=== PATIENT | male | born 1940 | race Caucasian/White ===

== ENCOUNTER → 2017-11-28 | Outpatient (CLI) | payer OTHER, MEDICARE ==
[~2017-11-28] MED LIST: ACET-2031 PO; ASC500 PO; ASP325 PO; ASPI-1471 PO; ASPI-715 PO; ATOR10TA65 PO; ATOR20TA65 PO; BARIUM SULFATE 176 GM BTL PO ONE; BARIUM SULFATE 340 GM POWD ONE; CALC625T69 PO; CHOL4PAC15 PO; CYA1000 PO; CYAN1TAB68 PO; DIC10 PO; DICY10CA62 PO; DICY20TA70 PO; DOC100 PO; DOCU-416 PO; DOCU50CA8 PO; ESCI10TA8 PO; FIB PO; FOL1 PO; FOLIC; GUAI120L3 PO; HYDR-4309 PO; LINA145C PO; NAPR-1043 PO; OMEP-125 PO; OMEP-153 PO; ONDA4TAB97 PO; OXYC-854 PO; OXYGENHOME INH; PER PO; PSYL3.4P2 PO; RANI-318 PO; ROS10 PO; SIMV-49 PO; TAMS0.4C70 PO; THIA100T3 PO
--- NOTE | 2017-11-28 16:50 | RADIOLOGY IMAGING REPORT ---
FACILITY: [facility] [place] PATIENT NAME: Art Pillai : 1940 MR: [id number] V: [id number] EXAM DATE: ORDERING PHYSICIAN: MILDRED CLARK TECHNOLOGIST: Location: [facility] Patient: Art Pillai : 1940 Visit/Account:[id number] Date of Sevice: 11/28/2017 Exam type: UPPER GI W/SMALL BOWEL SERIES History: Postprandial abdomen bloating abdomen pain and diarrhea Comparison: None. Findings: Double contrast upper GI series was performed with thick and thin barium. There is an impression on the posterior wall of the cervical esophagus by the cricopharyngeus muscle. Small amount of endotrac heal aspiration was observed during the examination. A large amount of gastroesophageal reflux obser sangita although no demonstration of esophageal stricture or hiatal hernia. No abnormality the stomach w as identified. The ligament of Treitz appeared to be in an abnormally low position. There was a [place] of small bowel loops in the left upper abdomen. The mucosal pattern the small bowel appeared un remarkable. There is no evidence of bowel obstruction. The terminal ileum appeared unremarkable. T ransit time to the right-sided colon was 15 minutes. The fluoroscopy dose area product was 1137.06 m icro-Freedman per meter squared IMPRESSION: 1. Large amount of gastroesophageal reflux although no evidence of hiatal hernia or esophageal stric ture.. There was an impression on the posterior wall the cervical esophagus by the cricopharyngeus muscle Small amount of endotracheal aspiration was observed during the examination Ligament of Treitz appeared to be in an abnormally low position. There was a paucity of small bowel loops in the left upper abdomen. This may be a congenital variant. Small bowel mucosal pattern appe ared unremarkable and there is no evidence of bowel distention. Transit time to the right-sided colo n was 15 minutes Report Dictated By: Nanette Duke MD at 11/28/2017 4:38 PM Report E-Signed By: Nanette Duke MD at 11/28/2017 4:46 PM WSN:[email or web address]
== END ==
LOC: RAD 01:25
PROVIDERS: ATTEND Surgery
DX: K21.9 Gastro-esophageal reflux disease without esophagitis (principal)
CPT/HCPCS: 74245

== ENCOUNTER → 2018-01-01 | Outpatient (CLI) | payer OTHER, MEDICARE ==
[~2018-01-01] MED LIST changes: -BARIUM SULFATE 176 GM BTL PO ONE; -BARIUM SULFATE 340 GM POWD ONE; +CHOL378P6 PO
[2018-01-01 09:17] LABS: PLATELET COUNT, AUTOMATED 163 K/uL (150-450)
[2018-01-01 09:34] LABS: LDL CHOLESTEROL 73 mg/dl
== END ==
LOC: LAB 08:45
PROVIDERS: ATTEND Internal Medicine
DX: N40.0 Benign prostatic hyperplasia without lower urinary tract symptoms (principal); R19.7 Diarrhea, unspecified; E78.5 Hyperlipidemia, unspecified
CPT/HCPCS: 36415; 81001; 82040; 82150; 82247; 82310; 82374; 82435; 82465; 82565; 82947; 83690; 83718; 84075; 84132; 84153; 84155; 84295; 84443; 84450; 84460; 84478; 84520; 85025

== ENCOUNTER 2018-04-06 12:59 | Emergency (ER) | payer OTHER, MEDICARE ==
--- NOTE | 2018-04-06 13:17 | ER Report ---
History and Physical Time Seen By : 13:16 HPI/ROS Fall onto left knee [employer]. Unable to ambulate. Pain and swelling in left knee without any other complaints/injuries Remainder of the 14 system rev: Yes Allergies: Coded Allergies: amoxicillin (Verified Allergy, Severe, SEDATION, 04/06/18) clavulanic acid (Verified Allergy, Severe, SEDATION, 04/06/18) Uncoded Allergies: HAYFEVER (Allergy, Mild, UNKNOWN, 03/07/12) Home Meds Active Scripts Ibuprofen (IBUPROFEN) 600 Mg Tablet, 1 TAB PO Q6H for 14 Days, TAB Prov:FELIPE NEW MD 04/06/18 Oxycodone Hcl/Acetaminophen (PERCOCET 5-325 MG TABLET) 1 Each Tablet, 1 EACH PO Q4H Y for PAIN, #12 TAB 0 Refills Prov:FELIPE NEW MD 04/06/18 Cholestyramine (With Sugar) (CHOLESTYRAMINE POWDER) 378 Gm Powder, 4 GM PO TID Y for diarhea, #378 GM 6 Refills Prov:MILDRED CLARK MD 03/05/18 Tamsulosin Hcl (TAMSULOSIN HCL) 0.4 Mg Cap.er.24h, 0.4 MG PO QHS, #90 CAP 3 Refills Prov:JUSTIN DESIR MD 01/01/18 Dicyclomine Hcl (DICYCLOMINE HCL) 20 Mg Tablet, 1 TAB PO TID, #270 TAB 3 Refills Prov:JUSTIN DESIR MD 01/01/18 Omeprazole (OMEPRAZOLE) 20 Mg Capsule., 1 CAP PO QAM, #180 CAP Prov:JUSTIN DESIR MD 12/28/17 Ranitidine Hcl (RANITIDINE HCL) 150 Mg Tablet, 1 TAB PO BID, #60 TAB 6 Refills Prov:MILDRED CLARK MD 11/22/17 Docusate Sodium (COLACE) 100 Mg Capsule, 1 CAP PO BID, #30 CAP 0 Refills TAKE WITH A FULL GLASS OF WATER Prov:MILDRED CLARK MD 09/14/17 Atorvastatin Calcium (ATORVASTATIN CALCIUM) 20 Mg Tablet, 1 TAB PO QDAY, #90 TAB 3 Refills Prov:JUSTIN DESIR MD 06/06/17 Reported Medications Aspirin (ASPIR 81) 81 Mg Tablet.dr, 81 MG PO QDAY, TAB 2/8/17 [Folic] No Conflict Check 01/11/16 Cyanocobalamin/Folic Acid (VITAMIN Z37-UOJQI ACID TABLET) 1 Each Tablet, 1 EACH PO QDAY 08/01/14 Reviewed Nurses Notes: Yes Old Medical Records Reviewed: Yes Hx Smoking: Yes (QUIT 1975) Smoking Status: Former Smoker Hx Substance Use Disorder: No Hx Alcohol Use: Yes Constitutional Physical Exam A/Ox3 in NAD Cv: RRR no m/r/g Lungs: cta b/l Abdomen: soft, ntnd MSK: no spine midline TTP Extremities: Left knee with TTP of the patella and effusion, limited ROM due to swelling Medical Decision Making ED Course/Re-evaluation ED Course Patella fracture, arthrocentesis of the left knee Procedure Left knee arthrocentesis: Patient consent obtained, sterile field applied, anesthetized with 6ml of 2% lidocaine without epi, 30 ml of bloody/serous drainage obtained. Sent to lab for analysis. Pain and mobility improved after procedure. Decision to Disposition Date: Apr 06, 2018 Decision to Disposition Time: 17:02 Depart Departure Latest Vital Signs Impression: Primary Impression: Patella fracture Condition: Improved Disposition: HOME OR SELF-CARE Referrals: JUSTIN DESIR MD (PCP) HECTOR HENSON MD New Scripts Ibuprofen (IBUPROFEN) 600 Mg Tablet 1 TAB PO Q6H for 14 Days, TAB Prov: FELIPE NEW MD 04/06/18 Oxycodone Hcl/Acetaminophen (PERCOCET 5-325 MG TABLET) 1 Each Tablet 1 EACH PO Q4H Y for PAIN, #12 TAB 0 Refills Prov: FELIPE NEW MD 04/06/18 Patient Instructions: Patellar Fracture (ED) Additional Instructions: This patient will be unable to fly on an airplane for at least 8 weeks Problem Qualifiers Primary Impression: Patella fracture Encounter type: initial encounter Fracture type: closed Fracture morphology : longitudinal Fracture alignment: nondisplaced Laterality: left Qualified Codes: S82.025A - Nondisplaced longitudinal fracture of left patella , initial encounter for closed fracture FELIPE NEW MD Apr 06, 2018 13:17
[2018-04-06 13:19] VITALS: BP 142/92
--- NOTE | 2018-04-06 14:10 | RADIOLOGY IMAGING REPORT ---
FACILITY: [facility] PATIENT NAME: Art Pillai : 1940 MR: [id number] V: [id number] EXAM DATE: ORDERING PHYSICIAN: FELIPE NEW TECHNOLOGIST: Location: [facility] [place] Patient: Art Pillai : 1940 Visit/Account:[id number] Date of Sevice: 04/06/2018 KNEE 3 VIEW LEFT History: Left knee pain. Swelling. Comparison study: None. Findings: There is a horizontal fracture involving the inferior third of the patella. There is abou t 2 mm of separation between the fracture fragments. There is an associated joint effusion with prep atellar swelling. There is diffuse joint space narrowing throughout the left knee with findings of chondrocalcinosis. The findings are most prominent in the medial joint space compartment. IMPRESSION: 1. Horizontal fracture involving the inferior third of the patella with 2 mm of separation of the fr acture fragments. 2. There is a small joint effusion and there is prepatellar soft tissue swelling. 3. 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 Report Dictated By: Kun Rueda MD at 04/06/2018 2:05 PM Report E-Signed By: Kun Rueda MD at 04/06/2018 2:07 PM WSN:[email or web address]
[2018-04-06] MEDS ORDERED: IBUPROFEN 600 MG TAB PO ONE (14:20)
[2018-04-06] MEDS ORDERED: oxyCODONE HCL 5 MG CAP PO ONE (14:50)
[2018-04-06] MEDS ORDERED: OXYC-865 PO (17:05)
[2018-04-06] MEDS ORDERED: IBUP600T22 PO (17:05)
== END 2018-04-06 17:31 | disposition home or self-care (01) ==
LOC: ER 13:23
DX: S82.025A Nondisplaced longitudinal fracture of left patella, initial encounter for closed fracture (principal)
CPT/HCPCS: 20610; 73562; 99283; L1830

== ENCOUNTER → 2018-05-09 | Outpatient (CLI) | payer OTHER, MEDICARE ==
[~2018-05-09] MED LIST changes: +IBUP600T22 PO; +NITR0.4T3 SL; +OXYC-865 PO
[2018-05-09 15:58] LABS: PLATELET COUNT, AUTOMATED 135 K/uL (150-450)
== END ==
LOC: RESP 14:25
PROVIDERS: ATTEND Internal Medicine
DX: R07.9 Chest pain, unspecified (principal)
CPT/HCPCS: 36415; 82040; 82247; 82310; 82374; 82435; 82565; 82947; 84075; 84132; 84155; 84295; 84450; 84460; 84484; 84520; 85025

== ENCOUNTER 2018-05-16 08:15 | Outpatient (RCR) | payer MEDICARE, OTHER ==
--- NOTE | 2018-05-03 15:13 | PT INITIAL EVALUATION ---
MEDICAL DIAGNOSIS: L knee inferior pole patella fracture at the lower third, knee arthritis TREATMENT DIAGNOSIS: same, altered gait mechanics DATE OF ONSET: 04/06/18 SUBJECTIVE: Art Pillai presents to physical therapy status post fracture of his L knee inferior pole patella fracture at the lower third along with arthritis after falling on his knee while working. He reports that the patella has healed well and will continue to further heal until it is fully healed. He reports that he was released from the brace yesterday. He reports that the brace kept him into L knee extension to prevent movement of the patella. He reports that his L knee has arthritis and is bone on bone that will need to be replaced in the future. He reports that he had his R hip replaced about 4 years ago. He reports that he would like to see if he can improve the knee flexion along with improving his core and B LE strength along with improving his walking. His precautions include avoid lifting more than 15-20# along with no twisting with or without weights. He reports that he his job requires him to lift 50-100# on a daily basis. He reports that he will be unable to return to work for at least 3 more weeks. Pain location is medial and lateral joint lines, inferior pole patella at the lower third and described as achy. Pain scale is 4 on a ten point pain scale. Pain is worse with bending, going down stairs, walking, twisting at the knee and better with keeping her knee straight , and resting. REHAB PROBLEM LIST: Increased Pain Decreased ROM Decreased Strength Decreased Endurance Decreased Balance Decreased Function Decreased ADL's Decreased Mobility Decreased Gait PREVIOUS MEDICAL HISTORY: See EMR OCCUPATION: Works at [employer] OBJECTIVE: Posture: He demonstrated minimal forward head, minimal B rounded shoulders, increased thoracic kyphosis, and decreased lumbar lordosis. There is no evidence of any shifts. ROM: R knee PROM-AROM: 0-130 degrees. L knee PROM-AROM: 5-0-80 degrees Strength: B hip flexion, abduction, extension, B ankle DF and PF: 4/5 with no pain. Did not test L knee flexion and extension due to recent fracture. R knee extension and flexion: 4/5 with no pain. B hip adduction: 5/5 with no pain. Palpation: TTP: L Medial and lateral joint lines, inferior pole patella at the lower third Special Tests: 5 degrees of L quad lag Mobility: Independent Gait: He demonstrated the following gait mechanics: decreased R step length, decreased velocity, increased lateral trunk movement, decreased L knee flexion during the gait cycle, decreased pelvic mobility, and increased base of support. Balance: Will test in the future ASSESSMENT: Art will benefit from skilled physical therapy addressing the listed impairments to improve function and QOL. Short Term Goals 3 weeks: Pt will demonstrate full PROM-AROM of L knee extension and flexion (0- 125 deg) to improve function and QOL. 6 weeks: Pt will demonstrate improvements with gait mechanics from baseline to prior level of gait mechanics to improve function and OQL. 6 weeks: Pt will demonstrate improvements in B LE strength from baseline to 4+/ 5 or greater to improve function and QOL. Patient's Goals improve range of motion, get back to work, be able to drive with clutch, and be able to go down stairs PLAN: Patient to be seen for Manual Therapy/STM/MET Strengthening/condition Ice/Heat Range of Motion Spinal Stabilization Work Hardening/Cond Stretching Iontophoresis Neuromuscular Re-ed Closed Chain Program Electrical Stim Posture/Body mechanics Gait Trg/Balance Trg Home Exercise Program Therapeutic Activities 2-3x/week for 6 Weeks If you have any questions, comments, or concerns about this report or plan, please contact me at . Thank you, Esequiel Duron, PT, DPT KRISD
[~2018-05-16 08:15] MED LIST changes: -HYDR-4309 PO; +HYDR-653 PO
--- NOTE | 2018-05-29 08:35 | PT PLAN OF CARE ---
Physician: Vaibhav Aldridge MD Patient is being seen: 2x/week Therapist: Esequiel Duron, PT, DPT Medical Diagnosis: L knee inferior pole patella fracture at the lower third, knee arthritis Treatment Diagnosis: same, altered gait mechanics Date of Onset: 04/06/18 Date of Initial Evaluation: 05/02/18 Date patient was last seen: 05/16/18 Number of treatments: 6 Number of cancellations/No shows: 0 INTERVENTIONS: Manual Therapy/STM/MET Strengthening/condition Ice/Heat Range of Motion Spinal Stabilization Work Hardening/Cond Stretching Iontophoresis Neuromuscular Re-ed Closed Chain Program Electrical Stim Posture/Body mechanics Gait Trg/Balance Trg Home Exercise Program Therapeutic Activities GOALS: 3 weeks: Pt will demonstrate full PROM-AROM of L knee extension and flexion (0- 125 deg) to improve function and QOL. MET 6 weeks: Pt will demonstrate improvements with gait mechanics from baseline to prior level of gait mechanics to improve function and OQL. MET 6 weeks: Pt will demonstrate improvements in B LE strength from baseline to 4+/5 or greater to improve function and QOL. Not Met PATIENT'S GOAL: improve range of motion, get back to work, be able to drive with clutch, and be able to go down stairs Status of Patient's Goals: Progressed well Patient Compliance: Good Prognosis: Good Reasons for continuing therapy: This is a discharge note for Art Pillai. On our last session he reported the following: He reports that his muscles were sore following the previous session and states that his medial knee is doing great unless he twists or turns the knee in a certain direction. He reports that he feels like he is ready to go back to work. He denies any pain around the knee cap and is no longer tender to touch. He was able to maintain his L knee flexion and extension (3-0-133 deg), normal accessory mobility of his patellar in all directions, increased tolerance to increased resistance in his core and B LE's, and return to prior level of function with his gait mechanics. However, he probably could have used more strengthening to his core and B LE's; however, he will utilize his home exercise program to do so. Posture: He demonstrated minimal forward head, minimal B rounded shoulders, increased thoracic kyphosis, and decreased lumbar lordosis. There is no evidence of any shifts. ROM: R knee PROM-AROM: 0-130 degrees. L knee PROM-AROM: 3-0-133 deg degrees Strength: B hip flexion, abduction, extension, B ankle DF and PF: 4+/5 with no pain. B knee extension and flexion: 4/5 with no pain. B hip adduction: 5/5 with no pain. Mobility: Independent If you have any questions, please contact me at [phone]. Thank you, Esequiel Duron, PT, DPT KRISD
[2018-06-01] MEDS ORDERED: SCOP1PAT16 TOP (11:00)
[2018-06-11] MEDS ORDERED: FLUT16SP19 NS (15:37)
[2018-06-11] MEDS ORDERED: LEVO750T44 PO (15:46)
[2018-07-10] MEDS ORDERED: FLUT16SP19 NS (16:50)
== END 2018-07-31 ==
LOC: PT 08:15
PROVIDERS: ATTEND Orthopaedic Surgery
DX: S82.002A Unspecified fracture of left patella, initial encounter for closed fracture (principal); M17.12 Unilateral primary osteoarthritis, left knee; Z96.641 Presence of right artificial hip joint; W19.XXXA Unspecified fall, initial encounter; Y92.89 Other specified places as the place of occurrence of the external cause
CPT/HCPCS: 97162

== ENCOUNTER → 2018-07-17 | Outpatient (CLI) | payer OTHER, MEDICARE ==
[~2018-07-17] MED LIST changes: +FLUT16SP19 NS; +LEVO750T44 PO; +SCOP1PAT16 TOP
--- NOTE | 2018-07-17 15:25 | RADIOLOGY IMAGING REPORT ---
FACILITY: [facility] PATIENT NAME: Art Pillai : 1940 MR: [id number] V: [id number] EXAM DATE: ORDERING PHYSICIAN: ANDRIA CRUZ TECHNOLOGIST: Location: [facility] Patient: Art Pillai : 1940 Visit/Account:[id number] Date of Sevice: 07/17/2018 EXERCISE MYOCARDIAL PERFUSION IMAGING Single Isotope SPECT Imaging with Exercise and Gated SPECT Imaging DATE OF EXAMINATION: July 17, 2018 REQUESTING PHYSICIAN: NANCY INDICATION: Syncope PROCEDURE: After informed consent the patient received an intravenous injection of Tc-99m sestamibi followed at the appropriate time interval by rest imaging. The patient then exercised according to the standard Brnenen protocol for 5 minutes achieving 6 METS. Resting heart rate was 63 bpm with a pea k heart rate of 126 bpm which is 87 % of maximal predicted heart rate for age. Blood pressure at re st was 157/83; blood pressure during exercise was 168/76. There was no chest pain during exercise. Exercise was discontinued because of fatigue. Baseline EKG demonstrates sinus rhythm. There were no EKG changes of ischemia at peak exercise. Approximately one minute and 30 seconds prior to the term ination of exercise, the patient received an intravenous injection of Tc-99m sestamibi followed by st ress imaging. DOSE of Tc-99m sestamibi: REST: 10.9 STRESS: 29.4 RAW DATA: Examination of the summed raw data revealed a good quality study. MYOCARDIAL PERFUSION: The tomographic images demonstrate normal myocardial perfusion without evidenc e of myocardial ischemia or infarct GATED IMAGES: The gated images demonstrate normal LV systolic performance and wall motion with LVEF 74%. IMPRESSION: 1. Adequate exercise tolerance without ischemic EKG changes noted. No significant arrhythmias during testing. 2. Normal myocardial perfusion without evidence of myocardial ischemia or infarct 3. Normal LV systolic performance and wall motion with LVEF 74% Report Dictated By: Nic Jones at 07/17/2018 3:19 PM Report E-Signed By: Nic Jones at 07/17/2018 3:22 PM WSN:[email or web address]
== END ==
LOC: NUC 00:36
PROVIDERS: ATTEND Internal Medicine Cardiovascular Disease
DX: I25.119 Atherosclerotic heart disease of native coronary artery with unspecified angina pectoris (principal)
CPT/HCPCS: 78452; 93017; A9500

== ENCOUNTER 2019-01-06 08:15 | Emergency (ER) | payer OTHER, MEDICARE ==
[~2019-01-06 08:15] MED LIST changes: +AZIT-17 PO; +CODE10LI PO; +PRED20TA6 PO; -ROS10 PO; +ROSU10TA PO
[2019-01-06] MEDS ORDERED: NS(*) 0.9% 500 ML BAG 500 ML IV ONE ×3 (08:20→11:30)
--- NOTE | 2019-01-06 08:20 | ER Report ---
History and Physical Time Seen By MD: 08:19 HPI/ROS CHIEF COMPLAINT: Dizziness HISTORY OF PRESENT ILLNESS: Patient is a 78-year-old male who lives [place] of [facility] who comes in today for evaluation of weakness dizziness and also some numbness to the left side of the face also with complaint of crampy abdominal pain. Patient states symptoms started last evening. He states that he's having episodes where he feels like he is going to pass out but doesn't. He also has noticed some left-sided numbness to his face. notes that there might be a left facial droop. Patient currently denies headache, denies chest pain or shortness of breath at this time. He is reporting crampy abdominal pain and is having tenesmus. Patient has a prior history of diverticulitis that required surgery in 2017. He denies any fevers or chills. He reports his last bowel movement was normal and was yesterday. He does state that he has frequent episodes of diarrhea and is on chronic antidiarrhea medication. Patient also has a history of coronary artery disease with catheterization 2017. Vessels at that time showed between 40 and 50% stenosis of the vessels were felt that they needed to have stenting required. He is followed yearly with Dr. Beaver in [place] [facility]. REVIEW OF SYSTEMS: Constitutional: No fever, no chills.Dizziness Eyes: No discharge. ENT: No sore throat. Cardiovascular: No chest pain, no palpitations. Respiratory: No cough, no shortness of breath. Gastrointestinal: abdominal cramping Genitourinary: No hematuria. Musculoskeletal: No back pain. Skin: No rashes. Neurological: No headache. Allergies: Coded Allergies: amoxicillin (Verified Allergy, Severe, SEDATION, 01/06/19) clavulanic acid (Verified Allergy, Severe, SEDATION, 01/06/19) Uncoded Allergies: HAYFEVER (Allergy, Mild, UNKNOWN, 03/07/12) Home Meds Active Scripts Cholestyramine (With Sugar) (CHOLESTYRAMINE POWDER) 378 Gm Powder, 4 GM PO TID PRN for diarhea, #378 GM 6 Refills Prov:MILDRED CLARK MD 12/25/18 Omeprazole (OMEPRAZOLE) 20 Mg Capsule.dr, 1 CAP PO BID for 90 Days, #180 CAP 3 Refills Prov:MILDRED CLARK MD 11/20/18 Ranitidine Hcl (RANITIDINE HCL) 150 Mg Tablet, 1 TAB PO BID, #60 TAB 6 Refills Prov:MILDRED CLARK MD 11/09/18 Tamsulosin Hcl (TAMSULOSIN HCL) 0.4 Mg Cap.er.24h, 0.4 MG PO QHS, #90 CAP 3 Refills Prov:JUSTIN DESIR MD 01/01/18 Dicyclomine Hcl (DICYCLOMINE HCL) 20 Mg Tablet, 1 TAB PO TID, #270 TAB 3 Refills Prov:JUSTIN DESIR MD 01/01/18 Atorvastatin Calcium (ATORVASTATIN CALCIUM) 20 Mg Tablet, 1 TAB PO QDAY, #90 TAB 3 Refills Prov:JUSTIN DESIR MD 06/06/17 Reported Medications Aspirin (ASPIR 81) 81 Mg Tablet.dr, 81 MG PO QDAY, TAB 11/09/16 [Folic] No Conflict Check 01/11/16 Cyanocobalamin/Folic Acid (VITAMIN P40-ZGELC ACID TABLET) 1 Each Tablet, 1 EACH PO QDAY 08/01/14 Discontinued Scripts Nitroglycerin (NITROGLYCERIN) 0.4 Mg Tab.subl, 0.4 MG SL Q5MIN PRN for CHEST PAIN-JANUARY REPEAT X 3, #30 TAB Prov:JUSTIN DESIR MD 01/01/19 Codeine Phosphate/Guaifenesin (Guaifen-Codeine 200-20 mg/10Ml) 20 Mg-200 Mg/10 Ml Liquid, 5 ML PO QID PRN for cough, #200 ML Prov:JUSTIN DESIR MD 12/07/18 Prednisone (PREDNISONE) 20 Mg Tablet, 20 MG PO BID, #10 TAB Prov:JUSTIN DESIR MD 12/07/18 Azithromycin (Z-PACK) 250 Mg Tablet, 1 DOSE-PACK PO DIRECTED, #1 DOSE-PACK 2 TABLETS DAY ONE THEN 1 TABLET EVERY DAY FOR THE NEXT 4 DAYS. Prov:JUSTIN DESIR MD 12/07/18 Fluticasone Prop 50 Mcg Ns (FLONASE 50 MCG NS) 16 Gm [place].susp, 2 SPRAYS NS QDAY for 10 Days, #1 BOT 5 Refills Prov:MARZENA LOZADA DNP, [employer] 07/10/18 Docusate Sodium (COLACE) 100 Mg Capsule, 1 CAP PO BID, #30 CAP 0 Refills TAKE WITH A FULL GLASS OF WATER Prov:MILDRED CLARK MD 09/14/17 Past Medical/Surgical History Past medical history significant for coronary artery disease and cardiac catheterization in 2016. History of diverticulitis, gastroesophageal reflux disease, history of right hip replacement in 2011. History of skin cancer Hx Smoking: Yes (QUIT 1976) Smoking Status: Former Smoker Hx Substance Use Disorder: No Hx Alcohol Use: Yes Constitutional Vital Sign - Last 24 Hours 01/06/19 01/06/19 01/06/19 01/06/19 08:31 08:33 08:42 08:45 Temp 97.9 Pulse 88 86 Resp 13 12 B/P (MAP) 129/79 (96) 129/78 115/78 (90) Pulse Ox 89 90 O2 Delivery Room Air 01/06/19 01/06/19 01/06/19 01/06/19 08:47 08:48 08:51 09:00 Pulse 82 90 75 Resp 14 11 12 B/P (MAP) 127/70 (89) 125/78 (94) 116/62 (80) 148/92 (110) Pulse Ox 91 91 92 01/06/19 01/06/19 01/06/19 01/06/19 09:05 09:30 09:35 09:41 Pulse 78 74 Resp 12 12 B/P (MAP) 113/69 (84) 137/73 (94) Pulse Ox 93 93 01/06/19 01/06/19 01/06/19 01/06/19 09:46 10:00 10:16 10:21 Pulse 75 78 79 Resp 11 14 12 B/P (MAP) 124/70 (88) Pulse Ox 91 90 90 01/06/19 01/06/19 01/06/19 01/06/19 10:30 10:51 11:15 11:21 Pulse 72 68 Resp 9 B/P (MAP) 117/68 (84) 137/74 (95) Pulse Ox 92 01/06/19 01/06/19 01/06/19 01/06/19 11:26 11:30 11:56 12:00 Pulse 67 59 Resp 5 10 B/P (MAP) 119/69 (86) 147/80 (102) Pulse Ox 91 91 Intake and Output 01/06/19 01/06/1919 15:00 23:00 07:00 Intake Total 1000 ml Balance 1000 ml Physical Exam General Appearance: The patient is alert, has no immediate need for airway protection and no signs of toxicity. Eyes: Pupils equal and round no pallor or injection. ENT, Mouth: Mucous membranes are moist. Respiratory: There are no retractions, lungs are clear to auscultation. Cardiovascular: Regular rate and rhythm. Gastrointestinal: Abdomen is soft and non tender, no masses, bowel sounds normal. Neurological: Awake and alert Skin: Warm and dry, no rashes. Musculoskeletal: Neck is supple non tender. Extremities are nontender, nonswollen and have full range of motion. NIH Stroke Scale: 2 Level of consciousness: Alert -0 Answers both questions correctly-0 Performs both tasks correctly-0 Best Gaze: Normal-0 Visual: No visual loss-0 Facial Palsy: Minor paralysis-1 Motor Left Arm: No drift for 10 seconds-0 Motor Right Arm: No drift for 10 seconds-0 Motor Left Leg: No drift for 5 seconds-0 Motor Right Leg: No drift for 5 seconds-0 Limb Ataxia: Absent-0 Sensory: mild to moderate sensory loss-1 Best Language: Normal, no aphasia-0 Dysarthria: Normal-0 Extinction and Inattention: No abnormality-0 Medical Decision Making Data Points Result Diagram: 01/06/19 0838 01/06/19 0838 Laboratory Hematology Test 01/06/19 08:38 01/06/19 12:09 Red Blood Count 4.74 M/uL (4.00-5.60) Mean Corpuscular Volume 97.4 fL (80.0-96.0) Mean Corpuscular Hemoglobin 32.9 pg (26.0-33.0) Mean Corpuscular Hemoglobin Concent 33.7 g/dL (32.0-36.0) Red Cell Distribution Width 15.2 % (11.5-14.5) Mean Platelet Volume 8.4 fL (7.2-11.1) Neutrophils (%) (Auto) 77.3 % (39.4-72.5) Lymphocytes (%) (Auto) 15.3 % (17.6-49.6) Monocytes (%) (Auto) 6.2 % (4.1-12.4) Eosinophils (%) (Auto) 0.8 % (0.4-6.7) Basophils (%) (Auto) 0.4 % (0.3-1.4) Nucleated RBC Relative Count (auto) 0.0 /100WBC Neutrophils # (Auto) 4.0 K/uL (2.0-7.4) Lymphocytes # (Auto) 0.8 K/uL (1.3-3.6) Monocytes # (Auto) 0.3 K/uL (0.3-1.0) Eosinophils # (Auto) 0.0 K/uL (0.0-0.5) Basophils # (Auto) 0.0 K/uL (0.0-0.1) Nucleated RBC Absolute Count (auto) 0.00 K/uL Prothrombin Time 12.1 seconds (12.0-14.4) Prothromb Time International Ratio 0.90 Activated Partial Thromboplast Time 26 seconds (23-35) Sodium Level 137 mmol/L (137-145) Potassium Level 3.9 mmol/L (3.5-5.0) Chloride Level 102 mmol/L (98-107) Carbon Dioxide Level 22 mmol/L (22-30) Blood Urea Nitrogen 17 mg/dl (9-21) Creatinine 0.90 mg/dl (0.66-1.25) Glomerular Filtration Rate Calc > 60.0 Random Glucose 197 mg/dl (75-110) Calcium Level 9.0 mg/dl (8.4-10.2) Total Bilirubin 0.6 mg/dl (0.2-1.3) Aspartate Amino Transf (AST/SGOT) 38 U/L (0-35) Alanine Aminotransferase (ALT/SGPT) 12 U/L (0-56) Alkaline Phosphatase 96 U/L (0-126) Troponin I < 0.012 ng/ml B-Type Natriuretic Peptide 18 pg/ml (0-100) Total Protein 7.5 g/dl (6.3-8.2) Albumin 4.5 g/dl (3.5-5.0) Whole Blood Glucose 115 mg/DL (75-110) Chemistry Test 01/06/19 08:38 01/06/19 12:09 White Blood Count 5.2 k/uL (4.5-11.0) Red Blood Count 4.74 M/uL (4.00-5.60) Hemoglobin 15.6 g/dL (14.0-18.0) Hematocrit 46.2 % (42.0-52.0) Mean Corpuscular Volume 97.4 fL (80.0-96.0) Mean Corpuscular Hemoglobin 32.9 pg (26.0-33.0) Mean Corpuscular Hemoglobin Concent 33.7 g/dL (32.0-36.0) Red Cell Distribution Width 15.2 % (11.5-14.5) Platelet Count 199 K/uL (150-450) Mean Platelet Volume 8.4 fL (7.2-11.1) Neutrophils (%) (Auto) 77.3 % (39.4-72.5) Lymphocytes (%) (Auto) 15.3 % (17.6-49.6) Monocytes (%) (Auto) 6.2 % (4.1-12.4) Eosinophils (%) (Auto) 0.8 % (0.4-6.7) Basophils (%) (Auto) 0.4 % (0.3-1.4) Nucleated RBC Relative Count (auto) 0.0 /100WBC Neutrophils # (Auto) 4.0 K/uL (2.0-7.4) Lymphocytes # (Auto) 0.8 K/uL (1.3-3.6) Monocytes # (Auto) 0.3 K/uL (0.3-1.0) Eosinophils # (Auto) 0.0 K/uL (0.0-0.5) Basophils # (Auto) 0.0 K/uL (0.0-0.1) Nucleated RBC Absolute Count (auto) 0.00 K/uL Prothrombin Time 12.1 seconds (12.0-14.4) Prothromb Time International Ratio 0.90 Activated Partial Thromboplast Time 26 seconds (23-35) Glomerular Filtration Rate Calc > 60.0 Calcium Level 9.0 mg/dl (8.4-10.2) Total Bilirubin 0.6 mg/dl (0.2-1.3) Aspartate Amino Transf (AST/SGOT) 38 U/L (0-35) Alanine Aminotransferase (ALT/SGPT) 12 U/L (0-56) Alkaline Phosphatase 96 U/L (0-126) Troponin I < 0.012 ng/ml B-Type Natriuretic Peptide 18 pg/ml (0-100) Total Protein 7.5 g/dl (6.3-8.2) Albumin 4.5 g/dl (3.5-5.0) Whole Blood Glucose 115 mg/DL (75-110) Coagulation Test 01/06/19 08:38 Prothrombin Time 12.1 seconds Prothromb Time International Ratio 0.90 Activated Partial Thromboplast Time 26 seconds EKG/Imaging EKG Interpretation EKG shows sinus rhythm with a ventricular rate of 85 bpm. 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 This was compared to an EKG from May 2018 and there are essentially no appreciable changes noted. Monitor Interpretation: Normal Sinus Rhythm Imaging FACILITY: [facility] PATIENT NAME: Art Pillai : 1940 MR: [id number] V: [id number] EXAM DATE: ORDERING PHYSICIAN: ULISSES ARSHAD TECHNOLOGIST: Location: [facility] [place] Patient: Art Pillai : 1940 Visit/Account:[id number] Date of Sevice: 01/06/2019 MR BRAIN/BRAIN STEM W/O CON COMPARISON: None. HISTORY: dizziness. TECHNIQUE: Multiplanar MRI brain utilizing T1 weighted and fluid sensitive sequences. CONTRAST: None. FINDINGS: CSF SPACES: Ventricles, cisterns, and sulci are diffusely prominent consistent with volume loss which appears age-appropriate. No hydrocephalus, extra-axial hemorrhage, or mass. No midline shift. CEREBRUM: Patchy foci of abnormal FLAIR signal hyperintensity in the cerebral white matter, commonly secondary to chronic small vessel ischemic disease. No acute infarct by diffusion-weighted imaging. No acute intracranial hemorrhage or cerebral edema. CEREBELLUM: No edema, hemorrhage, mass, acute infarction, or significant atrophy. Tonsils are not low lying. BRAINSTEM: No edema, hemorrhage, mass, acute infarction, or significant atrophy. CALVARIUM: Unremarkable. SINUSES: Limited views demonstrate no significant mucosal thickening or fluid. ORBITS: Limited views are unremarkable. OTHER: The expected intracranial flow voids are present. IMPRESSION: Cerebral white matter signal abnormality compatible with chronic small vessel ischemic disease. No acute intracranial process or specific cause for symptoms. Report Dictated By: Clinton Cisneros at 01/06/2019 11:38 AM Report E-Signed By: Clinton Cisneros at 01/06/2019 11:40 AM WSN:[id number] FACILITY: [facility] PATIENT NAME: Art Pillai : 1940 MR: [id number] V: [id number] EXAM DATE: ORDERING PHYSICIAN: ULISSES ARSHAD TECHNOLOGIST: Location: [facility] [place] Patient: Art Pillai : 1940 Visit/Account:[id number] Date of Sevice: 01/06/2019 CT BRAIN NO CONTRAST COMPARISON: None. HISTORY: dizziness. TECHNIQUE: Noncontrast axial CT brain with coronal and sagittal reformats. One of the following dose optimization techniques was utilized in the performance of this exam: automated exposure control; adjustment of the mA and/or kV according to patient size; or use of iterative reconstruction technique. Specific details can be referenced in the facility's radiology CT exam operational policy. CONTRAST: None. FINDINGS: CSF SPACES: Ventricles, cisterns, and sulci are diffusely prominent consistent with volume loss which appears age-appropriate. No hydrocephalus, extra-axial hemorrhage, or mass. No midline shift. CEREBRUM: Patchy low-density in the cerebral white matter, commonly associated with chronic small vessel ischemic disease. No clear evidence of acute infarct by CT. No acute intracranial hemorrhage or cerebral edema. CEREBELLUM: No edema, hemorrhage, mass, acute infarction, or significant atrophy. BRAINSTEM: No edema, hemorrhage, mass, acute infarction, or significant atrophy. CALVARIUM: No mass or other significant visible lesion. Mastoid air cells are normally pneumatized. SINUSES: Limited views demonstrate no significant mucosal thickening or fluid. Opacification of a single right anterior ethmoid air cell is noted. Small mucous retention cyst along the lateral wall of the right maxillary antrum. ORBITS: Limited views are unremarkable. OTHER: Negative. IMPRESSION: Findings compatible with moderate chronic small vessel ischemic disease. No acute intracranial process or specific cause for symptoms. Report Dictated By: Clinton Cisneros at 01/06/2019 9:39 AM Report E-Signed By: Clinton Cisneros at 01/06/2019 9:42 AMFACILITY: [facility] PATIENT NAME: Art Pillai : 1940 MR: [id number] V: [id number] EXAM DATE: ORDERING PHYSICIAN: ULISSES ARSAHD TECHNOLOGIST: Location: [facility] [place] Patient: Art Pillai : 1940 Visit/Account:[id number] Date of Sevice: 01/06/2019 CT ABDOMEN PELVIS W/O CON History: 78-year-old male with dizziness and abdominal pain.. Technique: CT images were obtained through the abdomen and pelvis without the injection of intravenous contrast. Coronal and sagittal reformations were then created. One of the following dose optimization techniques was utilized in the performance of this exam: Automated exposure control; adjustment of the mA and/or kV according to the patient's size; or use of an iterative reconstruction technique. Specific details can be referenced in the facility's radiology CT exam operational policy. Comparison study:None Findings: Lung bases: Negative Hepatobiliary: No liver mass is seen, but the noncontrast study limits evalu ation of the liver. All are surgically absent and there is no biliary ductal dilatation.. Spleen: Negative. Adrenals: Negative Pancreas: Negative. Kidneys/genitourinary/retroperitoneum: There are no findings of hydronephrosis or nephrolithiasis. There are no findings of retroperitoneal lymphadenopathy. Bowel/peritoneum/mesentery: There are no dilated loops of large or small bowel to suggest ileus or obstruction. There are no findings of diverticulosis or diverticulitis. Normal appendix is not seen in the same position as was on the prior exam. Pelvic/genital urinary: The bladder is unremarkable. Prostate is minimally enlarged. There is a focus of calcification in the prostate gland. Vessels: There is vascular calcification of the aorta and mesenteric vessels but there are no sites to suggest significant stenosis. The aorta measures 2.5 cm in its greatest AP dimension. Lymph node: No findings of a kaelyn mass. Body wall/bones: Status post right hip replacement. No hernia. Peritoneal cavity: No findings of ascites or pneumoperitoneum. IMPRESSION: 1. There are no findings to explain abdominal pain. 2. The gallbladder is not seen and may be surgically absent. 3. Status post right total hip replacement. Report Dictated By: Kun Rueda MD at 01/06/2019 9:36 AM Report E-Signed By: Kun Rueda MD at 01/06/2019 9:42 AM WSN:[id number] ED Course/Re-evaluation Clinical Indication for ER IV: IV Access ED Course 01/06/2019 8:51:35 am patient with potential strokelike symptoms in the sense of dizziness and some left-sided facial weakness. No apparent motor weakness or ataxia was elicited on exam. Patient has no difficulty with speech or memory. Patient also with crampy abdominal pain. History of diverticulitis. Plan at this time will be a stroke workup starting with noncontrast CT of the head. Given the fact that the patient is having episodes of dizziness this could represent posterior circulation. If no contraindications we'll perform a noncontrast brain MRI after CT scan. We'll also perform a noncontrast CT of the abdomen and pelvis to look for evidence of obstruction or inflammation. 01/06/2019 12:10:32 pm patient with unremarkable CT of the brain, CT of the abdomen and pelvis as well as MRI of the brain. Additional chronic small vessel disease but no acute finding to explain the patient's symptoms. She did have an elevated blood sugar during the visit which came down to 1 15 mg/dL after 1 L of IV fluids. The patient's symptoms may be related to undiagnosed type II diabetes referred back to primary care provider for evaluation. Decision to Disposition Date: Jan 06, 2019 Decision to Disposition Time: 12:11 Depart Departure Latest Vital Signs Vital Signs Date Time Temp Pulse Resp B/P (MAP) Pulse Ox O2 Delivery O2 Flow Rate FiO2 01/06/19 12:00 147/80 (102) 01/06/19 11:56 59 10 91 01/06/19 08:33 97.9 Room Air Impression: Primary Impression: Hyperglycemia Condition: Improved Disposition: HOME OR SELF-CARE Referrals: JUSTIN DESIR MD (PCP) 1 Week for recheck of blood sugar Patient Instructions: Hyperglycemia, Non-Diabetic (ED) ULISSES ARSHAD MD Jan 06, 2019 08:20
--- NOTE | 2019-01-06 08:39 | EKG ---
FACILITY: [facility] PATIENT NAME: PRIYA MILLER : [id number] MR: [id number] V: [id number] EXAM DATE: ORDERING PHYSICIAN: ULISSES ARSHAD TECHNOLOGIST: BOOGIE Test Reason : DIZZY Blood Pressure : / mmHG Vent. Rate : 085 BPM Atrial Rate : 085 BPM P-R Int : 190 ms QRS Dur : 100 ms QT Int : 426 ms P-R-T Axes : 069 -72 075 degrees QTc Int : 506 ms Sinus rhythm with premature atrial complexes Left axis deviation Anterior infarct , age undetermined Prolonged QT Abnormal ECG Confirmed by VALERIANO GARAY ([id number]) on 01/06/2019 11:57:29 AM Referred By: JEANCARLOS Confirmed By:VALERIANO GARAY
[2019-01-06 09:00] LABS: PLATELET COUNT, AUTOMATED 199 K/uL (150-450)
[2019-01-06 09:11] LABS: INR 0.9
--- NOTE | 2019-01-06 09:45 | RADIOLOGY IMAGING REPORT ---
[place] [facility] [place] NAME: Art Pillai : 1940 MR: [id number] V: [id number] EXAM DATE: ORDERING PHYSICIAN: ULISSES ARSHAD TECHNOLOGIST: Location: [facility] Patient: Art Pillai : 1940 Visit/Account:[id number] Date of Sevice: 01/06/2019 CT BRAIN NO CONTRAST COMPARISON: None. HISTORY: dizziness. TECHNIQUE: Noncontrast axial CT brain with coronal and sagittal reformats. One of the following dose optimization techniques was utilized in the performance of this exam: auto mated exposure control; adjustment of the mA and/or kV according to patient size; or use of iterative reconstruction technique. Specific details can be referenced in the facility's radiology CT exam op erational policy. CONTRAST: None. FINDINGS: CSF SPACES: Ventricles, cisterns, and sulci are diffusely prominent consistent with volume loss whic h appears age-appropriate. No hydrocephalus, extra-axial hemorrhage, or mass. No midline shift. CEREBRUM: Patchy low-density in the cerebral white matter, commonly associated with chronic small ve ssel ischemic disease. No clear evidence of acute infarct by CT. No acute intracranial hemorrhage or cerebral edema. CEREBELLUM: No edema, hemorrhage, mass, acute infarction, or significant atrophy. BRAINSTEM: No edema, hemorrhage, mass, acute infarction, or significant atrophy. CALVARIUM: No mass or other significant visible lesion. Mastoid air cells are normally pneumatize d. SINUSES: Limited views demonstrate no significant mucosal thickening or fluid. Opacification of a single right anterior ethmoid air cell is noted. Small mucous retention cyst along the lateral wall o f the right maxillary antrum. ORBITS: Limited views are unremarkable. OTHER: Negative. IMPRESSION: Findings compatible with moderate chronic small vessel ischemic disease. No acute intracranial proce ss or specific cause for symptoms. Report Dictated By: Clinton Cisneros at 01/06/2019 9:39 AM Report E-Signed By: Clinton Cisneros at 01/06/2019 9:42 AM WSN:[id number]
--- NOTE | 2019-01-06 09:45 | RADIOLOGY IMAGING REPORT ---
FACILITY: [facility] [place] PATIENT NAME: Art Pillai : 1940 MR: [id number] V: [id number] EXAM DATE: ORDERING PHYSICIAN: ULISSES ARSHAD TECHNOLOGIST: Location: [facility] Patient: Art Pillai : 1940 Visit/Account:[id number] Date of Sevice: 01/06/2019 CT ABDOMEN PELVIS W/O CON History: 78-year-old male with dizziness and abdominal pain.. Technique: CT images were obtained through the abdomen and pelvis without the injection of intravenou s contrast. Coronal and sagittal reformations were then created. One of the following dose optimization techniques was utilized in the performance of this exam: Autom ated exposure control; adjustment of the mA and/or kV according to the patient's size; or use of an i terative reconstruction technique. Specific details can be referenced in the facility's radiology C T exam operational policy. Comparison study:None Findings: Lung bases: Negative Hepatobiliary: No liver mass is seen, but the noncontrast study limits evaluation of the liver. All a re surgically absent and there is no biliary ductal dilatation.. Spleen: Negative. Adrenals: Negative Pancreas: Negative. Kidneys/genitourinary/retroperitoneum: There are no findings of hydronephrosis or nephrolithiasis. Th ere are no findings of retroperitoneal lymphadenopathy. Bowel/peritoneum/mesentery: There are no dilated loops of large or small bowel to suggest ileus or ob struction. There are no findings of diverticulosis or diverticulitis. Normal appendix is not seen in the same position as was on the prior exam. Pelvic/genital urinary: The bladder is unremarkable. Prostate is minimally enlarged. There is a focus of calcification in the prostate gland. Vessels: There is vascular calcification of the aorta and mesenteric vessels but there are no sites t o suggest significant stenosis. The aorta measures 2.5 cm in its greatest AP dimension. Lymph node: No findings of a kaelyn mass. Body wall/bones: Status post right hip replacement. No hernia. Peritoneal cavity: No findings of ascites or pneumoperitoneum. IMPRESSION: 1. There are no findings to explain abdominal pain. 2. The gallbladder is not seen and may be surgically absent. 3. Status post right total hip replacement. Report Dictated By: Kun Rueda MD at 01/06/2019 9:36 AM Report E-Signed By: Kun Rueda MD at 01/06/2019 9:42 AM WSN:[id number]
[2019-01-06] MEDS ORDERED: ASPIRIN 325 MG ENTERIC COATED PO ONE (11:40)
--- NOTE | 2019-01-06 11:43 | RADIOLOGY IMAGING REPORT ---
FACILITY: [facility] - [place] PATIENT NAME: Art Pillai : 1940 MR: [id number] V: [id number] EXAM DATE: ORDERING PHYSICIAN: ULISSES ARSHAD TECHNOLOGIST: Location: [facility] Patient: Art Pillai : 1940 Visit/Account:[id number] Date of Sevice: 01/06/2019 MR BRAIN/BRAIN STEM W/O CON COMPARISON: None. HISTORY: dizziness. TECHNIQUE: Multiplanar MRI brain utilizing T1 weighted and fluid sensitive sequences. CONTRAST: None. FINDINGS: CSF SPACES: Ventricles, cisterns, and sulci are diffusely prominent consistent with volume loss whic h appears age-appropriate. No hydrocephalus, extra-axial hemorrhage, or mass. No midline shift. CEREBRUM: Patchy foci of abnormal FLAIR signal hyperintensity in the cerebral white matter, commonly secondary to chronic small vessel ischemic disease. No acute infarct by diffusion-weighted imaging. No acute intracranial hemorrhage or cerebral edema. CEREBELLUM: No edema, hemorrhage, mass, acute infarction, or significant atrophy. Tonsils are not l ow lying. BRAINSTEM: No edema, hemorrhage, mass, acute infarction, or significant atrophy. CALVARIUM: Unremarkable. SINUSES: Limited views demonstrate no significant mucosal thickening or fluid. ORBITS: Limited views are unremarkable. OTHER: The expected intracranial flow voids are present. IMPRESSION: Cerebral white matter signal abnormality compatible with chronic small vessel ischemic disease. No a cute intracranial process or specific cause for symptoms. Report Dictated By: Clinton Cisneros at 01/06/2019 11:38 AM Report E-Signed By: Clinton Cisneros at 01/06/2019 11:40 AM WSN:[id number]
[2019-01-06 12:00] VITALS: BP 147/80
== END 2019-01-06 12:23 | disposition home or self-care (01) ==
LOC: ER 08:40
DX: R73.9 Hyperglycemia, unspecified (principal)
CPT/HCPCS: 36416; 70450; 70551; 74176; 82948; 83880; 84484; 85025; 85610; 85730; 93005; 96360; 96361; 99284; J7040; 82040; 82247; 82310; 82374; 82435; 82565; 82947; 84075; 84132; 84155; 84295; 84450; 84460; 84520

== ENCOUNTER → 2019-01-08 | Outpatient (CLI) | payer OTHER, MEDICARE ==
[2019-01-08 16:40] LABS: PLATELET COUNT, AUTOMATED 183 K/uL (150-450)
[2019-01-08 16:49] LABS: LDL CHOLESTEROL 78 mg/dl
== END ==
LOC: LAB 16:11
PROVIDERS: ATTEND Internal Medicine
DX: R73.9 Hyperglycemia, unspecified (principal); E78.5 Hyperlipidemia, unspecified; I25.10 Atherosclerotic heart disease of native coronary artery without angina pectoris; R42 Dizziness and giddiness
CPT/HCPCS: 36415; 82040; 82247; 82310; 82374; 82435; 82465; 82565; 82947; 83036; 83718; 84075; 84132; 84153; 84155; 84295; 84443; 84450; 84460; 84478; 84520; 85025

== ENCOUNTER → 2019-01-09 | Outpatient (CLI) | payer OTHER, MEDICARE ==
--- NOTE | 2019-01-14 20:13 | RT HOLTER TEST ---
FACILITY: [facility] PATIENT NAME: PRIYA MILLER : [id number] MR: [id number] V: [id number] EXAM DATE: ORDERING PHYSICIAN: JUSTIN DESIR TECHNOLOGIST: BYRON Hook-up date: 2019-01-09 12:39:00 Duration: 23:50:00 Test Indications: CAD Medications: NONE ON DIARY [id number] QRS complexes 2737 Ventricular ectopics which represent 2 % of total QRS comp. 141 Supraventricular ectopics which represent <1 % of total QRS comp. * Paced QRS complexes which represent % of total QRS comp. VENTRICULAR ECTOPY 2622 Isolated 49 Bigeminal Cycles 53 Couplets 3 Runs 9 Beats in Runs 3 Beats LONGEST at 79 BPM at 13:13:18 2019-01-09 3 Beats FASTEST at 102 BPM at 14:13:41 2019-01-09 SUPRAVENTRICULAR ECTOPY 132 Isolated 0 Couplets 2 Runs 9 Beats in Runs 5 Beats LONGEST at 152 BPM at 20:58:57 2019-01-09 4 Beats FASTEST at 163 BPM at 08:03:44 2019-01-10 HEART RATES 50 MIN at 17:48:57 2019-01-09 76 AVG 135 MAX at 08:03:46 2019-01-10 LONGEST RR 1.616 secs at 18:30:01 2019-01-09 S-T LEVELS Channel 1 -4.400 mm MIN at 18:36:30 2019-01-09 1.400 mm MAX at 08:58:00 2019-01-10 Channel 2 -2.200 mm MIN at 20:50:00 2019-01-09 2.800 mm MAX at 12:23:15 2019-01-10 Channel 3 -4.600 mm MIN at 05:57:45 2019-01-10 0.400 mm MAX at 00:56:00 2019-01-10 Study dominated by sinus rhythm infrequent SVE occuring in runs up to 5 beats. Occasional PVC with runs up to 3 beats long. Confirmed by Merlin Wolff ([id number]) on 01/14/2019 8:12:50 PM Referred By: Overread By: Merlin Blackmon
== END ==
LOC: RESP 07:13
PROVIDERS: ATTEND Internal Medicine
DX: I25.10 Atherosclerotic heart disease of native coronary artery without angina pectoris (principal)
CPT/HCPCS: 93225

== ENCOUNTER → 2019-01-16 | Outpatient (CLI) | payer OTHER, MEDICARE ==
[~2019-01-16] MED LIST changes: +GADOBENATE 529MG/1ML 15ML VIAL IVP ONE; +NS(*) 0.9% 50 ML BAG 50 ML ONE
--- NOTE | 2019-01-16 13:55 | RADIOLOGY IMAGING REPORT ---
FACILITY: [facility] - [place] PATIENT NAME: Art Pillai : 1940 MR: [id number] V: [id number] EXAM DATE: ORDERING PHYSICIAN: JUSTIN DESIR TECHNOLOGIST: Location: [facility] Patient: Art Pillai : 1940 Visit/Account:[id number] Date of Sevice: 01/16/2019 EXAMINATION: MRA of the [place] HISTORY: Dizziness, coronary artery disease. COMPARISON: Head MRA from 06/24/2012, CT head and brain MRI from 01/06/2019, and neck MRA from . TECHNIQUE: 3D eswy-oc-xzlryq angiography was performed in the axial plane on the [place] without IV isaias olinium. The exam was tailored for assessment of the [place] only. Only limited sequences were obtai beatriz of the rest of the brain. FINDINGS: Carotids: Negative. Anterior/posterior communicating arteries: Patent anterior communicating artery. No definite posterio r communicating artery on either side. Anterior cerebral arteries: Negative. Middle cerebral arteries: Negative. Posterior cerebral arteries: Negative. Intracranial vertebral arteries: The left vertebral artery is dominant with a slightly smaller right vertebral artery. Mild loss of signal at the skull base related to the plane of the vessels. No focal stenosis. Both vertebral arteries contribute to the basilar artery. Basilar artery: Negative. PICA/AICA/SCA: Negative. Non-angiographic Findings: None significant. IMPRESSION: Normal MRA of the [place]. Report Dictated By: Leslie Kumar MD at 01/16/2019 1:47 PM Report E-Signed By: Leslie Kumar MD at 01/16/2019 1:51 PM WSN:[id number]
--- NOTE | 2019-01-16 14:04 | RADIOLOGY IMAGING REPORT ---
FACILITY: [facility] - [place] PATIENT NAME: Art Pillai : 1940 MR: [id number] V: [id number] EXAM DATE: ORDERING PHYSICIAN: JUSTIN DESIR TECHNOLOGIST: Location: [facility] [place] Patient: Art Pillai : 1940 Visit/Account:[id number] Date of Sevice: 01/16/2019 EXAMINATION: MRA neck without IV contrast MRA neck with IV contrast HISTORY: Dizziness, coronary artery disease. COMPARISON: Neck MRA from 06/24/2012, CT head and brain MRI from 01/06/2019, and head MRA from 9. TECHNIQUE: A preliminary fat suppressed axial sequence was obtained in the mid-upper neck (for asses sment of dissection) followed by non-gadolinium enhanced 3D time of flight angiography in the axial p irina on the carotid bifurcations. The patient received a bolus of intravenous gadolinium during which coronal 3D time of flight angiography was performed from the aortic arch through the [place]. 3D and 2D sagittal and coronal reformatted images were obtained form the source data. Audio Engineer images have been stored on PACS. Stenosis of the internal carotid arteries are calculated using OTIS CET criteria. CONTRAST: 15 mL of IV MultiHance gadolinium. FINDINGS: Angiographic Findings: Aortic arch/great vessel origins: Configuration of the aortic arch is normal. Origins of the great ve ssels from the arch are widely patent. Right CCA/ICA: Negative. Left CCA/ICA: There is smooth narrowing of the internal carotid artery 2.5 cm above the carotid bulb, with 50% stenosis. Vertebrobasilar: Left vertebral artery is dominant with a smaller right vertebral artery. Origins are widely patent. No irregularity or stenosis of either vertebral artery. Both vertebral arteries contr ibute to the basilar artery. [place]: Negative. Non-angiographic Findings: Mild degenerative changes of the cervical spine. IMPRESSION: 1. 50% stenosis of the left internal carotid artery. 2. Otherwise normal neck MRA. Report Dictated By: Leslie Kumar MD at 01/16/2019 1:53 PM Report E-Signed By: Leslie Kumar MD at 01/16/2019 1:59 PM WSN:[id number]
== END ==
LOC: MRI 00:44
PROVIDERS: ATTEND Internal Medicine
DX: I65.22 Occlusion and stenosis of left carotid artery (principal)
CPT/HCPCS: 70544; 70549; A9577; J7050

== ENCOUNTER 2019-05-22 01:27 | Day surgery (SDC) | payer OTHER, MEDICARE ==
--- NOTE | 2019-05-20 15:28 | NUR ---
0074 PATIENT STATED HE HAD TO GO BACK TO WORK AND UNABLE TO FINISHED INTERVIEW. STRESSED IMPORTANCE TO FINISH SINCE PROCEDURE WAS IN 2 DAYS. PATIENT STATED HE WAS FRUSTRATED WITH THE WHOLE DEPARTMENT AND STATED HE WOULD CALL BACK WHEN HE HAD TIME TO TALK.
[~2019-05-22] VITALS: Ht 175.3 cm; Wt 58.1 kg
[2019-05-22] VITALS (7 sets, daily range): BP systolic 123–162; BP diastolic 75–115
[~2019-05-22 01:27] MED LIST changes: +ATOR40TA69 PO; +CARB-134 PO; -GADOBENATE 529MG/1ML 15ML VIAL IVP ONE; -NS(*) 0.9% 50 ML BAG 50 ML ONE; -OMEP-125 PO; +OMEP-126 PO
[2019-05-22] MEDS ORDERED: PROPOFOL EMUL(*) 10MG/ML 20 ML 40 ML ONE (07:33)
[2019-05-22] MEDS ORDERED: LIDOCAINE MPF 1% 5 ML VIAL ONE (07:33)
[2019-05-22] MEDS ORDERED: NORMOSOL R SOLN(*) 1000 ML BAG 1,000 ML IV PRN (09:45)
[2019-05-22] MEDS ORDERED: LIDOCAINE/SOD BICARB 8.4% SYR ID ONE (09:45)
--- NOTE | 2019-05-22 11:00 | Short(Outpt) Discharge Summary ---
Discharge Summary Reason for Hosp/Final Diag: (1) Tubular adenoma of colon Status: Chronic Hospital Course & Plan: Colonoscopy with polypectomy x3 completed without problems. Departure Discharge to: Home, Self Care Discharge Instructions Home Meds Active Scripts Ranitidine Hcl (RANITIDINE HCL) 150 Mg Tablet, 1 TAB PO BID, #60 TAB 6 Refills Prov:MILDRED CLARK MD 05/17/19 Dicyclomine Hcl (DICYCLOMINE HCL) 20 Mg Tablet, 1 TAB PO QDAY PRN for diarhea, #1 TAB Prov:JUSTIN DESIR MD 01/30/19 Atorvastatin Calcium (ATORVASTATIN CALCIUM) 40 Mg Tablet, 1 TAB PO QDAY, #90 TAB 3 Refills Prov:JUSTIN DESIR MD 01/30/19 Cholestyramine (With Sugar) (CHOLESTYRAMINE POWDER) 378 Gm Powder, 4 GM PO TID PRN for diarhea, #378 GM 6 Refills Prov:MILDRED CLARK MD 12/25/18 Omeprazole (OMEPRAZOLE) 20 Mg Capsule.dr, 1 CAP PO BID for 90 Days, #180 CAP 3 Refills Prov:MILDRED CLARK MD 11/20/18 Tamsulosin Hcl (TAMSULOSIN HCL) 0.4 Mg Cap.er.24h, 0.4 MG PO QHS, #90 CAP 3 Refills Prov:JUSTIN DESIR MD 01/01/18 Reported Medications Docusate Sodium (COLACE) 100 Mg Capsule, 2 CAP PO QDAY, CAPSULE 01/30/19 Aspirin (ASPIR 81) 81 Mg Tablet., 81 MG PO QDAY, TAB 11/09/16 Cyanocobalamin/Folic Acid (VITAMIN T20-SNKEZ ACID TABLET) 1 Each Tablet, 1 EACH PO QDAY 08/01/14 Discontinued Reported Medications [Folic] No Conflict Check 01/11/16 Diet: Regular Activity: As Tolerated Special Instructions: Your colonoscopy was completed without problems and your prep was excellent (Good Job!!). I removed 3 small polyps from your colon and they were sent to pathology. I didn't find any other abnormalities in your colon or rectum. My office will call you in the next week or two to let you know what the polyps are but, in any case, your next colonoscopy should be in 5 years. MILDRED CLARK MD May 22, 2019 11:00
== END 2019-05-22 12:05 | disposition home or self-care (01) ==
LOC: OR 01:27
PROVIDERS: ATTEND Surgery
DX: Z12.11 Encounter for screening for malignant neoplasm of colon (principal); D12.4 Benign neoplasm of descending colon; K63.5 Polyp of colon; Z86.010 Personal history of colon polyps
CPT/HCPCS: 00811; 45385; 88305; J2001; J2704